=== PATIENT | female | born 1955 | race Caucasian/White ===

== ENCOUNTER 2019-12-28 10:57 | Day surgery (SDC) | payer MEDICARE ==
[~2019-12-28] VITALS: Ht 175.3 cm; Wt 69.0 kg
[~2019-12-28 10:57] MED LIST: BUPIVACAINE/PF 0.5% ONE
[2019-12-28 11:35] VITALS: BP 118/81
[2019-12-28] MEDS ORDERED: LACTATED RINGERS 1,000 ML IV SCH (11:39)
[2019-12-28] MEDS ORDERED: MIDAZOLAM 1 MG/ML, 2ML ONE (11:41)
[2019-12-28] MEDS ORDERED: FENTANYL PF 100 MCG/2ML ONE ×2 (11:41→15:10)
[2019-12-28] MEDS ORDERED: CHLORHEXIDINE 15 ML UDC MM STA (11:43)
[2019-12-28] MEDS ORDERED: QUET300T PO (12:18)
[2019-12-28] MEDS ORDERED: BUPR200T PO (12:18)
[2019-12-28] MEDS ORDERED: FENTANYL PF 100 MCG/2ML IV PRN (13:30)
[2019-12-28] MEDS ORDERED: ACETAMINOPHEN 325 MG TABLET PO PRN (13:30)
[2019-12-28] MEDS ORDERED: KETOROLAC 30 MG/1 ML IV PRN (13:30)
[2019-12-28] MEDS ORDERED: HYDROmorphone 2 MG/ML, 1ML IVPush PRN (13:30)
[2019-12-28] MEDS ORDERED: LABETALOL 5MG/ML, 20ML IV PRN (13:30)
[2019-12-28] MEDS ORDERED: hydrALAzine 20 MG/ML, 1ML IV PRN (13:30)
[2019-12-28] MEDS ORDERED: OXYcodone 5 MG/5 ML ORAL.SOL UDC PO PRN (13:30)
[2019-12-28] MEDS ORDERED: PROMETHAZINE 25 MG/ML, 1ML IV PRN (13:30)
[2019-12-28] MEDS ORDERED: ALBUTEROL SULFATE 2.5 MG/3 ML NPPB PRN (13:30)
[2019-12-28] MEDS ORDERED: MEPERIDINE/PF 25MG/0.5ML IVPush PRN (13:30)
[2019-12-28] MEDS ORDERED: DIAZEPAM 5 MG/ML, 2ML IVPush PRN (13:30)
[2019-12-28] MEDS ORDERED: GLYCOPYRROLATE 0.2MG/1ML, 5ML ONE (14:19)
[2019-12-28] MEDS ORDERED: PROPOFOL 10 MG/ML, 20ML ONE (14:19)
[2019-12-28] MEDS ORDERED: ONDANSETRON 2MG/ML, 2ML ONE (14:19)
[2019-12-28] MEDS ORDERED: NEOSTIGMINE 1 MG/ML, 10ML ONE (14:19)
[2019-12-28] MEDS ORDERED: ROCURONIUM 10MG/ML,5ML ONE (14:19)
[2019-12-28] MEDS ORDERED: CEFAZOLIN 1,000 MG ONE (14:19)
[2019-12-28] MEDS ORDERED: SUCCINYLCHOLINE 20 MG/ML, 10ML ONE (14:19)
[2019-12-28] MEDS ORDERED: DEXAMETHASONE 4 MG/ML, 1ML ONE (14:19)
[2019-12-28] MEDS ORDERED: SUGAMMADEX 200 MG/2 ML IVPush ONE (14:26)
[2019-12-28] MEDS ORDERED: OXYcodone 5 MG/5 ML ORAL.SOL UDC ONE (15:10)
== END 2019-12-28 18:15 | disposition home or self-care (01) ==
LOC: OUT 10:57
PROVIDERS: ATTEND Orthopaedic Surgery
DX: S52.591A Other fractures of lower end of right radius, initial encounter for closed fracture (principal); Z20.828 Contact with and (suspected) exposure to other viral communicable diseases; G56.01 Carpal tunnel syndrome, right upper limb; J45.909 Unspecified asthma, uncomplicated; M81.0 Age-related osteoporosis without current pathological fracture; G47.30 Sleep apnea, unspecified; F17.200 Nicotine dependence, unspecified, uncomplicated; Z79.891 Long term (current) use of opiate analgesic; Z79.899 Other long term (current) drug therapy; X58.XXXA Exposure to other specified factors, initial encounter; Y93.89 Activity, other specified; Y92.89 Other specified places as the place of occurrence of the external cause; Y99.8 Other external cause status
CPT/HCPCS: 25607; 64721; 73100; 76000; 87635; 93005; C1713; C1762; J0690; J1100; J2250; J2405; J2704; J3010; J7120; J2710; J0330